=== PATIENT | male | born 1965 | race Caucasian/White ===

== ENCOUNTER 2017-03-23 19:51 | Emergency (ER) | payer OTHER ==
[~2017-03-23] VITALS: Ht 170.2 cm; Wt 136.1 kg
--- NOTE | 2017-03-23 21:40 | Diagnostic Imaging Report ---
CHEST SINGLE (NOT PORTABLE), 03/23/2017 8:51 PM Technique: CHEST SINGLE (NOT PORTABLE) Comparison: None available. Clinical history: Shortness of breath, cough Findings: Limited by portable technique and soft tissue attenuation. Given this, grossly unremarkable appearance of the heart, mediastinum, lungs and pleural spaces.. Impression: 1. Lines/Tubes: None 2. No definite acute abnormality. Signed by: Dr Donna Coronel MD on 03/23/2017 9:36 PM
[2017-03-23] MEDS ORDERED: CODEINE SULFATE 15 MG TAB PO STA (22:18)
[2017-03-23 23:06] VITALS: BP 145/85
== END 2017-03-23 23:08 | disposition home or self-care (01) ==
LOC: ER 19:51
DX: R05 Cough (principal); J20.9 Acute bronchitis, unspecified; R10.9 Unspecified abdominal pain; K43.9 Ventral hernia without obstruction or gangrene; I10 Essential (primary) hypertension; E11.9 Type 2 diabetes mellitus without complications; J45.909 Unspecified asthma, uncomplicated
CPT/HCPCS: 71010; 99284